=== PATIENT | female | born 1985 | race Caucasian/White ===

== ENCOUNTER → 2024-06-20 08:44 | Outpatient (REF) | payer BC, SELFPAY | LOC: HWRAD 08:44 | PROVIDERS: ATTENDING PHYSICIAN Otolaryngology; FAMILY PHYSICIAN Family Medicine | DX: J32.0 Chronic maxillary sinusitis (principal) | CPT/HCPCS: 70486 ==

== ENCOUNTER → 2024-12-12 08:25 | Outpatient (REF) | payer BC, SELFPAY | LOC: HWRAD 08:25 | PROVIDERS: ATTENDING PHYSICIAN Nurse Practitioner Family; FAMILY PHYSICIAN Family Medicine | DX: N97.9 Female infertility, unspecified (principal) | CPT/HCPCS: 76830; 76856 ==